=== PATIENT | male | born 1975 | race African-American/Black ===

== ENCOUNTER 2016-07-16 11:57 | Emergency (ER) | payer BC ==
--- NOTE | ~2016-07-16 | CR63 ---
[facility] A Service of [facility] RADIOLOGY TEXT RESULTS PATIENT: RIGOBERTO PARKINSON LOCATION: SED : 79 UNIT #: [id number] AGE: [address]: PHU DELGADO SEX: M ORDER DR: [id number] [address] [address] [id number] E MR#: [id number] Acc #: [id number] NAME: RIGOBERTO PARKINSON : 1975 SEX: M STUDY DATE/TIME: 07/16/2016 12:34 UNIT: SED ROOM: STUDY DESCRIPTION: CR Chest 2 View Attending Physician: Phu Delgado Ordering Physician: Volodymyr Gallardo M.D. Primary Care Physician: Afshin Quevedo M.D. MEDICAL IMAGING REPORT This report is preliminary unless electronic signature is present. EXAM Portable chest x-ray 07/16/2016 HISTORY Trauma, left posterior rib pain, fell yesterday. Left posterior rib pain lower. FINDINGS PA and lateral radiographs of chest are presented. No fracture. If there is concern for potential left rib fracture, consider a dedicated left rib series. The heart and mediastinum are normal in size and contour. The lungs are well inflated. There is linear scarring or atelectasis at the extreme lung bases bilaterally. There is no evidence of acute pulmonary disease. No pleural effusion or pneumothorax and no suspicious nodule. IMPRESSION 1. No clearly acute bony abnormality is seen. If there is ongoing concern for potential left rib fracture, consider dedicated left rib series. 2. Lungs well inflated. Minimal linear scarring or atelectasis lung bases. Lungs otherwise clear. No pleural effusion or pneumothorax. 3. Cardiomediastinal contours normal. Dictated by... Jovi De La Fuente M.D. THIS IS AN ELECTRONICALLY VERIFIED REPORT Jovi De La Fuente M.D. at 07/17/2016 8:25 AM [email or web address]/[email or web address] [facility] A Service of [facility] RADIOLOGY TEXT RESULTS PATIENT: RIGOBERTO PARKINSON LOCATION: SED : [birth year] UNIT #: [id number] AGE: [address]: PHU DELGADO SEX: M ORDER DR: TD: 07/16/2016 14:30 JOB #: [id number] MEDICAL IMAGING REPORT Page 1 of 1
[2016-07-16] MEDS ORDERED: NO MEDICATIONS (12:02)
[2016-07-16 12:45] LABS: URINE SOURCE CLEAN CATCH
[2016-07-16 12:47] LABS: URINE APPEARANCE CLEAR; URINE BILIRUBIN NEG (NEG); URINE BLOOD NEG (NEG); URINE COLOR YELLOW; URINE GLUCOSE NEG (NORM); URINE KETONE NEG (NEG); URINE LEUKOCYTE ESTERASE NEG (NEG); URINE NITRATE NEG (NEG); URINE PH 5.5 (5-8); URINE PROTEIN NEG (NEG); URINE SPECIFIC GRAVITY >=1.030 (1.003-1.035)
[2016-07-16 12:52] LABS: MICRO INDICATED? NO
== END 2016-07-16 13:08 | disposition home or self-care (01) ==
LOC: SED 11:57
PROVIDERS: Nurse Practitioner
DX: S20.212A Contusion of left front wall of thorax, initial encounter (principal); W01.0XXA Fall on same level from slipping, tripping and stumbling without subsequent striking against object, initial encounter; Y92.009 Unspecified place in unspecified non-institutional (private) residence as the place of occurrence of the external cause
CPT/HCPCS: 71020; 81003; 99283

== ENCOUNTER 2016-07-25 15:38 | Emergency (ER) | payer BC ==
--- NOTE | ~2016-07-25 | CR210 ---
[facility] A Service of [facility] RADIOLOGY TEXT RESULTS PATIENT: RIGOBERTO PARKINSON LOCATION: SED : 77 UNIT #: [id number] AGE: [address]: FELTON MEDINA PA-C SEX: M ORDER DR: [id number] [address] [address] [id number] E MR#: [id number] Acc #: [id number] NAME: RIGOBERTO PARKINSON : 1975 SEX: M STUDY DATE/TIME: 07/25/2016 16:23 UNIT: SED ROOM: STUDY DESCRIPTION: CR Ribs Uni 2 View W PA Ch Lt Attending Physician: Felton Medina Pa-C Ordering Physician: Staff Doctor Not On Primary Care Physician: Afshin Quevedo M.D. MEDICAL IMAGING REPORT This report is preliminary unless electronic signature is present. EXAM Left rib series with PA chest. INDICATION Rib pain on the left beginning today. This occurred after sneezing. COMPARISON Comparison is made with 07/16/2016. FINDINGS The PA view of the chest is within normal limits. AP and oblique views of the left ribs demonstrate no evidence for displaced rib fracture. IMPRESSION No evidence for displaced rib fracture. Dictated by... Ronaldo Mauricio M.D. THIS IS AN ELECTRONICALLY VERIFIED REPORT Ronaldo Mauricio M.D. at 07/27/2016 10:32 AM JAUN/lani TD: 07/25/2016 22:08 JOB #: [id number] MEDICAL IMAGING REPORT Page 1 of 1
[~2016-07-25 15:38] MED LIST: NO MEDICATIONS
== END 2016-07-25 17:32 | disposition home or self-care (01) ==
LOC: SED 15:38
DX: R07.81 Pleurodynia (principal)
CPT/HCPCS: 71100; 96372; 99283; J1885